=== PATIENT | male | born 1945 | race Caucasian/White ===

== ENCOUNTER 2017-12-29 14:32 | Outpatient (CLI) | payer BC ==
[~2017-12-29 14:32] MED LIST: Gadobenate Dimeglumine 529 MG/1 ML (20ML VIAL) ONE
--- NOTE | 2017-12-29 19:58 | MRI ---
MRI PELVIS WITH AND WITHOUT CONTRAST: HISTORY: Z85.820 (history of melanoma). L03.317 (cellulitis). COMPARISON: None. FINDINGS: In the posterior buttock soft tissues, there are extensive inflammatory changes with a peripherally e nhancing collection of inflammatory fluid at the level of S2-S5, with areas of susceptibility. There is also loss of normal T1 marrow signal of the posterior elements of the sacrum (S3-S5), as well as anterior elements (S3-S5), concerning for osteomyelitis. There is infectious myositis of the gluteus maximum muscles bilaterally. There is also inflammation and reactive fluid along the presacral spac e. The prostate is mildly enlarged. IMPRESSION: 1. Evidence of a peripherally enhancing collection, posterior subcutaneous fat, S3-S5, with a draini ng sinus tract, containing gas. There is associated osteomyelitis of the sacrum, S3-S5, anterior and posterior elements, as well as infectious pyomyositis of the gluteus tony muscles bilaterally. 2. Abnormal bilateral external iliac adenopathy concerning for metastasis. 3. Mildly prominent right superficial inguinal lymph nodes, also concerning for metastasis. 4. Prostatomegaly. 5. Focal area of abnormal enhancement from the L5 vertebra, may be sequela of a Schmorl's node versu s metastasis. CODE T POS: PATY
== END 2017-12-29 14:33 | disposition home or self-care (01) ==
LOC: TBSIIMAG 14:32
PROVIDERS: ATTEND Family Medicine
DX: L03.317 Cellulitis of buttock (principal); M46.28 Osteomyelitis of vertebra, sacral and sacrococcygeal region; M60.08 Infective myositis, other site; R59.0 Localized enlarged lymph nodes; R93.7 Abnormal findings on diagnostic imaging of other parts of musculoskeletal system; Z85.820 Personal history of malignant melanoma of skin
CPT/HCPCS: 72197; 82565; A9579

== ENCOUNTER 2017-12-30 19:14 | Inpatient (IN) | payer BC, MEDICARE ==
[2017-12-30] MEDS ORDERED: Ondansetron HCl/PF 4 MG/2 ML Vial IVP PRN (20:16)
[2017-12-30] MEDS ORDERED: Acetaminophen 650 MG Suppository PR PRN (20:16)
[2017-12-30] MEDS ORDERED: Ondansetron ODT 4 MG TAB PO PRN (20:16)
[2017-12-30] MEDS ORDERED: Acetaminophen 325 MG TAB PO PRN (20:16)
[2017-12-30] MEDS ORDERED: Bisacodyl 5 MG TAB PO PRN (20:16)
[2017-12-30 20:20] VITALS: BMI 29.8
[2017-12-30 20:58] LABS: Hemoglobin 13.1 g/dL (14.0-18.0); Mean Corpuscular HGB CONC 33.9 g/dL (32.0-36.0); Mean Corpuscular Hemoglobin 29.6 pg (27.0-31.0); Mean Corpuscular Volume 87.5 fl (80.0-94.0); Mean Platelet Volume 6.7 fL (7.4-10.4); Platelet Count 259 thou/uL (130-400); RBC Distribution Width 13.5 % (11.5-14.5); Red Blood Cell (RBC) Count 4.41 mill/uL (4.70-6.10); White Blood Cell (WBC) Count 16.6 thou/uL (4.8-10.8)
[2017-12-30 21:11] LABS: Band 3 % (5-11); Eosinophils 3 % (0-10); Lymphocytes 53 % (21-51); MDiff Complete? YES; Monocytes 4 % (0-10); Neutrophil 36 % (42-75)
[2017-12-30 21:19] LABS: ALT (SGPT) 33 U/L (8-55); AST (SGOT) 30 U/L (5-34); Albumin 4.2 g/dL (3.4-4.8); Alkaline Phosphatase 77 U/L (40-150); Anion Gap 9 mmol/L (10-20); BUN (Urea Nitrogen) 23 mg/dL (8.4-25.7); Bilirubin, Total 0.4 mg/dL (0.2-1.2); Calc. Creatinine Clearance 76 mL/min (70-130); Calcium 9.7 mg/dL (7.8-10.44); Carbon Dioxide 28 mmol/L (23-31); Chloride 104 mmol/L (98-107); Estimated GFR-MDRD 56; Globulin 3.4 g/dL (2.4-3.5); Glucose 109 mg/dL (80-115); Potassium 4.2 mmol/L (3.5-5.1); Protein, Total 7.6 g/dL (5.8-8.1); Sodium 137 mmol/L (136-145)
[2017-12-30] MEDS: Piperacillin/Tazobactam 4.5 GM in Sodium Chloride 0.9% 100 ML IVPB SCH (21:28)
[2017-12-30] MEDS: Famotidine 20 MG TAB PO SCH (21:28)
[2017-12-30] MEDS: Docusate 100 MG CAP PO SCH (21:28)
[2017-12-30 23:19] LABS: Bilirubin Negative (Negative); Blood, Urine Negative (Negative); Clarity CLEAR (Clear); Glucose, Urine (Dipstick) Negative (Negative); Leukocyte Negative (Negative); Nitrite Negative (Negative); Protein, Urine (Dipstick) Negative (Neg-Trace); Specific Gravity, Urine 1.019 (1.002-1.036); Urobilinogen 0.2 mg/dL (0.2-1.0); pH, Urine 5.5 (5.0-9.0)
[2017-12-30 23:22] LABS: Bacteria/HPF None Seen HPF (None Seen); Hyaline Casts/LPF 0-3 HYALINE CAST LPF (0-3 Hyaline); RBC/HPF 0-3 HPF (0-3); Squamous Epithelial None Seen HPF (0-3); WBC/HPF None Seen HPF (0-3)
[2017-12-31] MEDS ORDERED: Morphine 4 MG/ML VIAL SLOW IVP PRN (02:06)
[2017-12-31] MEDS: Piperacillin/Tazobactam 4.5 GM in Sodium Chloride 0.9% 100 ML IVPB SCH ×4 (04:10→20:48)
--- NOTE | 2017-12-31 05:36 | CON ---
DATE OF CONSULTATION: 12/30/2017 CHIEF COMPLAINT: Open wound on sacrum. HISTORY OF PRESENT ILLNESS: Patient is a 72-year-old white male. About 60 years ago, he had excisio n of some form of a malignancy on his lower back. 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 This was widely excised and closed with some form of tissue rearrangement. I do not have the operative no te at my disposal. He apparently thereafter underwent treatment with a year of interferon and high-d ose radiation therapy. He has had no subsequent problems with this area in the subsequent 16 years. About 2 months ago, he developed some pain and drainage in this area. In some fashion, an area was opened and there was purulent material and has been packed and he has been on courses of different an tibiotics. With wound getting larger, he was referred to see a plastic surgeon was seen by Dr. Arriola. Dr. Arriola saw him and performed a biopsy of some part of this wound on 12/26/2017. The pathology of this is benign, revealing a scar and reactive stroma. An MRI was obtained yesterday and this revealed several potentially concerning findings with an area that felt to potentially be infection with a draining sinus tract, abnormal external iliac adenopathy , right superficial inguinal lymph nodes, and a concern regarding osteomyelitis of the sacrum. Brianna king was admitted to the hospital by his primary care physician for further evaluation. PAST MEDICAL HISTORY: Significant for anxiety, hypertension. PAST SURGICAL HISTORY: Excision of lower back cutaneous malignancy with apparently rotation flap candy sure. He also had spine surgery in 1992. CURRENT MEDICATIONS: Zoloft, amlodipine, carvedilol. ALLERGIES: NUVIA INHIBITORS. SOCIAL HISTORY: He is with 3 children. He does not smoke. 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 His primary care physician is Dr. Chris Haley. REVIEW OF SYSTEMS: Otherwise, unremarkable. FAMILY HISTORY: Noncontributory. PHYSICAL EXAMINATION: VITAL SIGNS: Temperature is 98.0, pulse 82, blood pressure is 132/78. GENERAL: He is a well-developed, well-nourished, pleasant white male in no acute distress. He is al ert and oriented x3. HEAD, EYES, EARS, NOSE, AND THROAT: Unremarkable. NECK: Supple without mass or tenderness. LUNGS: Clear to auscultation throughout. CARDIAC: Regular rate and rhythm without murmur. ABDOMEN: Soft, nontender, nondistended. BACK: He has an area of brawny induration consistent with an area of extensive radiation in his lowe r back that probably measures about 10 x 7 cm. At the lower aspect of this, there is an opening cosme uring about 1-1.5 cm and this penetrates deeply about 1 cm. There is slight undermining to the right . The base of this wound appears to be sclerotic fibrotic tissue. : He has normal male external genitalia with testes descended bilaterally. He has easily palpable , slightly indurated lymph nodes in the right superficial groin. He has no significant lymphadenopat hy on the left. EXTREMITIES: Otherwise unremarkable. LABORATORY DATA AND X-RAY FINDINGS: CBC reveals white blood cell count is elevated at 16.6, hemoglob in is 13, platelet count 259. Chemistry panel reveals no significant abnormalities. ASSESSMENT: Patient with an area of tissue breakdown on his lower back and area of significant radia tion following an area of excision of some form of melanoma. I am not certain what is causing this, but in some fashion it seems to certainly be related to the radiation. It is possible that there was an area of radiation necrosis that became infected. I am not certain if the area of osteomyelitis s uspected on his MRIs actually infectious osteomyelitis or some change secondary to radiation. I am n ot certain whether the enlarged lymph nodes are reactive or metastatic or again related to the infect ion. Patient seems quite certain that there was an infection in this area, but there is currently no active evidence of infection. Microbiology evaluation from 11/26/2017 reveals that there was achrom obacter within the wound that was sensitive to Bactrim with which he was treated. Since the biopsy performed by Dr. Arriola was negative for malignancy, it seems less likely this is a ma lignancy. May want to consider performing a superficial groin lymph node biopsy to ensure that this is reactive rather than metastatic. I would like to review his case with Radiology to go over the fi ndings on his MRI. I would like to have the input of Dr. Matute of infectious disease. I also plan t o discuss the findings with Dr. Arriola. The initial importance is to rule out malignancy. If there is osteomyelitis and that should be ascertained and treated appropriately as well. If there is a noni rn whether this is infectious or inflammatory/radiation-induced and perhaps a bone biopsy will be nec essary. I would tentatively plan to proceed with the lymph node biopsy on 01/01/2018, pending the in put from the above-mentioned consultants and physicians.
--- NOTE | 2017-12-31 06:55 | HP ---
REASON FOR ADMISSION: Possible osteomyelitis of the sacral area. HISTORY OF PRESENT ILLNESS: The patient was sent from Dr. Chris Haley's office for nonhealing wound in the sacral area. This started out as redness and the skin broke with subsequent infection and has been draining pus. This has been there for the last 6 weeks now. He was given doxycycline twice daily along with Bactrim for nearly 3 weeks. Prior to this he was on clindamycin. He has significant history of having had melanoma removed in the same spot and had a heavy dose radiation therapy done 16 years back. The patient in fact had gone to see Dr. Arriola, plastic surgeon, on last and has had biopsy taken from the wound. The has been packing the wound and has been doing dressing changes as well. He had an MRI done yesterday which showed signs of osteomyelitis with lymph nodes seen and was referred for hospitalization by Dr. Chris Haley. PAST MEDICAL AND SURGICAL HISTORY: History of spindle cell and melanoma diagnosed in 2001, treated with radiation and Interferon and has seen Dr. Antonio for the same, hypertension, dyslipidemia, erectile dysfunction, prior colonoscopy in 2015, history of asthma, anxiety disorder, ascending aortic aneurysm per family. CURRENT MEDICATIONS: Zoloft 50 mg p.o. daily, Symbicort inhaler 160/4.5 mcg 2 puffs twice daily, Nexium 20 mg daily, Claritin 10 mg daily, doxycycline 100 mg daily, Norvasc with atorvastatin 10/10 mg p.o. daily, lorazepam 0.5 mg p.r.n., Coreg 25 mg twice daily, Viagra p.r.n. ALLERGIES: LISINOPRIL. PERSONAL HISTORY: Does not abuse alcohol or drugs. No history of smoking. FAMILY HISTORY: Father has history of bladder cancer, multiple MIs. Mother is diseased and has had history of basal cell carcinoma. She at the age of 72 years. REVIEW OF SYSTEMS: The following complete review of systems was negative, unless otherwise mentioned in the HPI or below: Constitutional: Weight loss or gain, ability to conduct usual activities. Skin: Rash, itching. Eyes: Double vision, pain. ENT/Mouth: Nose bleeding, neck stiffness, pain, tenderness. Cardiovascular: Palpitations, dyspnea on exertion, orthopnea. Respiratory: Shortness of breath, wheezing, cough, hemoptysis, fever or night sweats. Gastrointestinal: Poor appetite, abdominal pain, heartburn, nausea, vomiting, constipation, or diarrhea. Genitourinary: Urgency, frequency, dysuria, nocturia. Musculoskeletal: Pain, swelling. Neurologic/Psychiatric: Anxiety, depression. Allergy/Immunologic: Skin rash, bleeding tendency. PHYSICAL EXAMINATION: GENERAL: The patient is a 72-year-old male who is currently not in any acute distress. VITAL SIGNS: Blood pressure 132/78, pulse 80 per minute, respiratory rate 18 per minute, temperature 98 degrees Fahrenheit, saturating 98% on room air. NECK: Supple, no elevated JVD. HEENT: Eyes; extraocular muscles intact. Pupils reacting to light. Oral cavity; mucous membranes are moist. No exudates or congestion. CARDIOVASCULAR: S1, S2 heard. Regular rhythm. RESPIRATORY: Air entry 1+ bilaterally. No rales or rhonchi. ABDOMEN: Soft, bowel sounds heard. No tenderness, rigidity or guarding. The patient has stage IV sacral ulcer measuring 1 x 2 cm. EXTREMITIES: No peripheral edema or calf tenderness. VASCULAR SYSTEM: Peripheral pulses 1+ bilateral, no ischemic ulcerations or gangrene. CENTRAL NERVOUS SYSTEM: No gross focal deficits seen. Patient is alert, awake , oriented x3. PSYCHIATRIC: The patient's mood is euthymic. No hallucinations or delusions. LABORATORY AND X-RAY FINDINGS: White count 16, H&H 13 and 38, platelet count 259 with 36% neutrophils. Electrolytes stable. BUN 23, creatinine 1.28, glucose 109. Liver enzymes are within normal limits. Albumin is 4.2. CLINICAL IMPRESSION AND PLAN: The patient will be admitted to medical floor for osteomyelitis of the sacrum S3 to S5 with possible infectious pyomyositis of the gluteus tony. He has had an MRI done on the which confirms the above-mentioned findings. The skin biopsy done by Dr. Abdi Arriola is negative for malignancy. This has collagenous scar and reactive stroma seen. He will be placed on vancomycin and Zosyn for now. Dr. Saavedra is here to evaluate him. We will continue him on Norvasc, Lipitor, Coreg, Pepcid, sertraline as before. He will be on morphine p.r.n. for pain. Further workup of the wound including debridement is per Dr. Saavedra. Wound cultures have been obtained and we will follow up on the cultures for now. Please note I have seen and examined patient on 12/30/2017. CODE STATUS: Please note patient's code status is full. This was discussed with patient and at bedside. YA
[2017-12-31] MEDS: Amlodipine 10 MG TAB PO SCH (08:42)
[2017-12-31] MEDS: Famotidine 20 MG TAB PO SCH ×2 (08:43→20:46)
[2017-12-31] MEDS: Carvedilol 25 MG TAB PO SCH ×2 (08:44→16:08)
[2017-12-31] MEDS: Docusate 100 MG CAP PO SCH ×2 (08:44→20:47)
[2017-12-31 09:35] LABS: Band 1 % (5-11); Eosinophils 1 % (0-10); Hemoglobin 12.6 g/dL (14.0-18.0); Lymphocytes 61 % (21-51); MDiff Complete? YES; Mean Corpuscular HGB CONC 32.7 g/dL (32.0-36.0); Mean Corpuscular Hemoglobin 28.7 pg (27.0-31.0); Mean Corpuscular Volume 87.7 fl (80.0-94.0); Mean Platelet Volume 6.7 fL (7.4-10.4); Monocytes 3 % (0-10); Neutrophil 31 % (42-75); Platelet Count 232 thou/uL (130-400); RBC Distribution Width 13.6 % (11.5-14.5); RBC Morphology Normal; Reactive Lymphocytes 3 % (0-10); White Blood Cell (WBC) Count 13.1 thou/uL (4.8-10.8)
--- NOTE | 2017-12-31 14:09 | PDOC.PN ---
- Subjective Encounter Start Date: 12/31/17 Encounter Start Time: 14:07 Patient seen and examined, no new issues or complaints, all questions answered. - Objective Resuscitation Status: Resuscitation Status FULL:Full Resuscitation Vital Signs & Weight: Vital Signs (12 hours) Temp Pulse Resp BP BP Pulse Ox 12/31/17 11:53 98 F 52 L 16 132/76 97 12/31/17 08:42 53 L 113/70 12/31/17 08:07 98.2 F 53 L 16 113/70 97 12/31/17 08:00 98 F 52 L 16 97 12/31/17 04:00 97.7 F 56 L 16 112/66 93 L Weight Admit Weight 220 lb Weight 220 lb Result Diagrams: 12/31/17 08:56 12/30/17 20:46 Phys Exam - Physical Examination Constitutional: NAD HEENT: PERRLA, moist MMs, sclera anicteric Neck: no nodes, no JVD, supple Respiratory: no wheezing, no rales, no rhonchi Cardiovascular: RRR, no significant murmur Gastrointestinal: soft, non-tender, no distention, positive bowel sounds Musculoskeletal: no edema, pulses present sacral ulcer with a tract going down towards the sacrum Neurological: non-focal, normal sensation, moves all 4 limbs Psychiatric: normal affect, A&O x 3 Skin: no rash, normal turgor Dx/Plan (1) Osteomyelitis Code(s): M86.9 - OSTEOMYELITIS, UNSPECIFIED Status: Acute (2) HTN (hypertension) Code(s): I10 - ESSENTIAL (PRIMARY) HYPERTENSION Status: Acute (3) Anxiety Code(s): F41.9 - ANXIETY DISORDER, UNSPECIFIED Status: Acute (4) Hyperlipidemia Code(s): E78.5 - HYPERLIPIDEMIA, UNSPECIFIED Status: Acute - Plan * PICC placement * cultures pending * abx per ID * surgery and oncology also following * BP stable * DC plans in 24-48hrs once abx arrangements can be done * case and plan d/w patient at length, he understands and agrees with this plan
--- NOTE | 2017-12-31 19:24 | CON ---
DATE OF CONSULTATION: 12/31/2017 REASON FOR CONSULTATION: Decubitus ulcer of sacrum, osteomyelitis, myositis. HISTORY OF PRESENT ILLNESS: A 72-year-old patient of Dr. Chris Haley, who has a history of melanoma, who underwent resection in 2001 in this area. Subsequently, he was treated I believe at [facility] with radiation therapy and interferon. The patient for the past 6 weeks has noticed an opening in the inferior aspect of his gluteal area/intergluteal area close to the perianal region, which developed some redness with breakdown of the skin and then a persistent chronic drainage, which has failed oral antimicrobial therapy with doxycycline and Bactrim. The patient does take doxycycline for acne intermittently. He also was given clindamycin. A biopsy was done by Dr. Arriola, which showed chronic fibrotic changes, but no inflammatory changes or evidence of melanoma recurrence. The patient ended up with an MRI being performed, which demonstrated myositis in the gluteal musculature associated with it. Osteomyelitis of the tip of the sacrum, coccygeal area. Cultures have revealed achromobacter. No headaches, visual symptoms, sore throat, odynophagia, dysphagia. No cough or sputum production. No chest pain. No abdominal pain, diarrhea, genitourinary symptoms outside what we described. No joint symptoms. PAST MEDICAL HISTORY: Spindle-cell melanoma treated with radiation, interferon , and surgical resection; erectile dysfunction; colonoscopy; asthma; anxiety disorder; acne. MEDICATIONS: Zoloft, Symbicort, Nexium, Claritin, doxycycline, Norvasc, atorvastatin, lorazepam, Coreg, Viagra. ALLERGIES: LISINOPRIL. 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 FAMILY HISTORY: Bladder cancer, coronary artery disease. PHYSICAL EXAMINATION: VITAL SIGNS: T-max 98.3, blood pressure 130/76, pulse 53, respirations 16, O2 sat 97%. GENERAL: Appears in no distress. SKIN: Shows the orifice at the end of the sacral skin area close to the perianal region and a surrounding band of hyperemic hardened fibrotic skin around the lower end of the presacral skin region. No lymphadenopathy noted except for the right inguinal region, where there was a small lymph node. HEENT: Ocular movements conjugate. Nasal passages patent. Oral cavity normal. Numerous teeth in place with the expected decay. NECK: Supple. No jugular vein distention or carotid bruits. LUNGS: Symmetric clear breath sounds. HEART: S1, S2 regular rate. No S3 or S4. ABDOMEN: Soft, not distended, or tender. No ascites. No bladder distention. EXTREMITIES: He moves extremities equally. Pulses are 1+ in dorsalis pedis. NEUROLOGIC: Cognitive function appears to be intact. LABORATORY DATA: Chemistry is fairly unremarkable. Creatinine is 1.28. GFR estimated at 56. White cell count was 16.6, down to 13; hemoglobin 12.6; MCV 87 ; platelets 232 with 36% neutrophils; 1% bands; 52% lymphocytes. Sed rate is 37. Urinalysis was normal. Microbiology with Achromobacter denitrificans, which was susceptible to ceftazidime, piperacillin and tazobactam, and Bactrim. Two sets of blood cultures thus far no growth and the MRI of the pelvis demonstrated peripheral enhancing collection; posterior subcutaneous fat S3 and S4 with a draining sinus tract containing gas associated with osteomyelitis of the sacrum, S3 and S5; pyomyositis of the gluteus tony bilaterally; there is abnormal bilateral external iliac adenopathy as well. ASSESSMENT: History of melanoma about 16 years ago, now with this post- radiation changes in the skin with an ulcerated area, which represents a fistulous opening which connects to the sacral distal end associated with pyomyositis. DISCUSSION: The patient likely has osteomyelitis of the sacrum. Organisms associated with this kind of finding including the pyomyositis of the area include Staphylococcus aureus/MRSA, gram-negative rods, anaerobes, Streptococci. I would advise against surgical procedure because of the risk of poor healing due to the chronic fibrotic changes and poor vascular status of this tissue related to the prior radiation therapy. Biopsy of the bone would be also potentially associated with complications since only the very end of the sacrum or coccygeal area is involved and a procedure there would likely lead to a fracture of that and might result in chronic pain. The cultures from the exudate emanating from the drainage wound will be the only guiding piece available here in terms of antimicrobial choice. I would probably just treat him with broad-spectrum coverage including gram-positive coverage with vancomycin and either meropenem or Zosyn. The treatment duration will be around 6 weeks, monitoring the progress of the lesion. I would also advise a consultation with hyperbaric section of the hospital for treatments. I believe that this is one of the established indications for hyperbaric treatments. PICC line placement will be required. I have discussed potential adverse reactions of the treatment with the patient including possibility of colitis; skin hypersensitive reactions; kidney, liver, bone marrow toxicity; as well as line-related clots with DVT. The patient understood and agreed with management and recommendations. MTDD
[2017-12-31] MEDS: Atorvastatin Calcium 10 MG TAB PO SCH (20:46)
--- NOTE | 2017-12-31 21:11 | PRG ---
DATE OF SERVICE: 12/31/2017 Mr. Arnodl in good spirits and has no new complaints tonight. Since my consultation yesterday, I have visited with his Infectious Disease physician, Dr. Matute as well as furniture rental consultant. I dis cussed his MRI with a radiologist as well. At this time, Dr. Matute plans to treat him empirically fo r his osteomyelitis with a 6-week course of IV antibiotics for which he plans to have a PICC line chad zakiya. I plan to biopsy his enlarged right inguinal lymph node tomorrow. Depending upon findings asso ciated with this biopsy, further plans could be entertained regarding. The eventual treatment of the radiated tissue and open wound on his back. I discussed the procedure in detail regarding his lymph node, and he understands and agrees to proceed.
--- NOTE | 2018-01-01 01:25 | CON ---
DATE OF CONSULTATION: 01/01/2018 REASON FOR CONSULTATION: Melanoma. HISTORY OF PRESENT ILLNESS: Mr. Arnold is a 72-year-old gentleman who was treated by [facility]ois on for melanoma of the low back approximately 16 years ago. He underwent treatment with interferon a nd radiation. He was followed thereafter by Dr. Antonio for several years. He recently had an open wound of the area, where he was radiated and saw Dr. Arriola who was treating it, who performed a biops y of the area which was benign. He was being treated with antibiotics and wound care. Dr. Zeinab galo red an MRI of the area, which showed likely osteomyelitis. There was some abnormal bilateral externa l iliac adenopathy. There was also mildly prominent right superficial inguinal lymph node. All this was concerning for metastasis per the MRI report, so patient was admitted. Dr. Matute was consulted for the osteomyelitis. Dr. Saavedra has been consulted, we were asked to see the patient regarding po ssible melanoma. Patient states he has been in his usual state of health until this wound occurred. Denies any headaches, blurred vision, no chest pain, shortness of breath. No weakness, weight loss, or general malaise. PAST MEDICAL HISTORY: 1. Melanoma, 16 years ago. 2. Hypertension. 3. Anxiety. PAST SURGICAL HISTORY: 1. Excision of melanoma. 2. Spine surgery. ALLERGIES: LISINOPRIL. CURRENT MEDICATIONS: 1. Norvasc 10 mg daily. 2. Aspirin 81 mg daily. 3. Symbicort b.i.d. 4. Omeprazole 20 mg daily. 5. Flovent b.i.d. 6. Loratadine daily. 7. Sertraline daily. FAMILY HISTORY: Father had bladder cancer. SOCIAL HISTORY: . No alcohol, tobacco, or illicit drug use. REVIEW OF SYSTEMS: Twelve-point review of systems is negative except for noted in HPI. PHYSICAL EXAMINATION: VITAL SIGNS: Temperature is 97.6, pulse is 59, respiratory rate 16, BP is 124/76. He is 97% on room air. GENERAL: Well-developed, well-nourished male in no acute distress. HEENT: Normocephalic, atraumatic. Pupils equal and reactive to light. NECK: Supple. CARDIOVASCULAR: Regular rate and rhythm. LUNGS: Clear. ABDOMEN: Soft, nontender, bowel sounds are positive. EXTREMITIES: There is no clubbing, cyanosis, or edema. SKIN: He has a dressing to his sacral area, which is clean and dry. NEUROLOGIC: Nonfocal. PSYCHIATRIC: Patient is alert and oriented and appropriate. PERTINENT LABORATORY DATA AND X-RAYS: Current WBCs are 13.1, hemoglobin 12.6, hematocrit 38.5, plate let count is 232,000. He has got 31% neutrophils, 61% lymphocytes. Sodium is 137, potassium 4.2, ch loride 104, CO2 is 28, BUN is 23, creatinine 1.28, glucose is 109, calcium is 9.7. Total bilirubin i s 0.4, AST is 30, ALT is 33, alkaline phosphatase is 77, serum total protein is 7.6, albumin 4.2, joseline bulin 3.4. Urine is negative. ASSESSMENT: 1. Likely osteomyelitis of a sacral wound at prior radiation site. 2. History of melanoma. 3. Inguinal lymphadenopathy. DISCUSSION: Patient has agreed to an inguinal node biopsy to rule out any metastatic disease, this w ill be performed by Dr. Saavedra in the morning. Further treatment will be based on pathology results . New immunological treatments for melanoma was discussed with the patient. We will follow his path and see him in the outpatient setting if needed. Thank you for the consult.
[2018-01-01] MEDS: Piperacillin/Tazobactam 4.5 GM in Sodium Chloride 0.9% 100 ML IVPB SCH ×4 (03:24→21:00)
[2018-01-01] MEDS: Sodium Chloride 0.9% 1,000 ML IV SCH ×2 (03:24→12:28)
[2018-01-01] MEDS: Carvedilol 25 MG TAB PO SCH ×2 (06:33→17:02)
[2018-01-01] MEDS: Amlodipine 10 MG TAB PO SCH (07:32)
[2018-01-01] MEDS: Famotidine 20 MG TAB PO SCH ×2 (07:33→20:59)
[2018-01-01] MEDS: Docusate 100 MG CAP PO SCH ×2 (07:33→20:59)
[2018-01-01] MEDS ORDERED: Lidocaine 1% PF 5 ML VIAL ONE (09:47)
[2018-01-01] MEDS ORDERED: PROPOFOL 200 MG/20 ML VIAL ONE (09:47)
[2018-01-01] MEDS ORDERED: Bupivacaine/Epinephrine 0.25% 30 ML VIAL ONE (10:04)
[2018-01-01] MEDS ORDERED: Fentanyl 100 MCG/2 ML VIAL ONE (10:11)
[2018-01-01] MEDS ORDERED: Midazolam HCl 2 mg/2 ml Vial ONE (10:11)
--- NOTE | 2018-01-01 13:41 | PDOC.PN ---
- Subjective Encounter Start Date: 01/01/18 Encounter Start Time: 11:30 Patient seen and examined, no new issues or complaints, s/p lymph node biopsy. - Objective Resuscitation Status: Resuscitation Status FULL:Full Resuscitation Vital Signs & Weight: Vital Signs (12 hours) Temp Pulse Resp BP Pulse Ox 01/01/18 08:00 98.2 F 67 20 98 01/01/18 07:52 98.2 F 67 20 117/75 98 01/01/18 07:32 73 Weight Admit Weight 220 lb Weight 220 lb Result Diagrams: 12/31/17 08:56 12/30/17 20:46 Phys Exam - Physical Examination Constitutional: NAD HEENT: PERRLA, moist MMs, sclera anicteric Neck: no nodes, no JVD, supple, full ROM Respiratory: no wheezing, no rales, no rhonchi Cardiovascular: RRR, no significant murmur, no rub Gastrointestinal: soft, non-tender, no distention, positive bowel sounds Musculoskeletal: no edema, pulses present Neurological: non-focal, normal sensation Psychiatric: normal affect, A&O x 3 Skin: no rash, normal turgor Deviation from normal: sacral ulcer present Dx/Plan (1) Osteomyelitis Code(s): M86.9 - OSTEOMYELITIS, UNSPECIFIED Status: Acute (2) HTN (hypertension) Code(s): I10 - ESSENTIAL (PRIMARY) HYPERTENSION Status: Acute (3) Anxiety Code(s): F41.9 - ANXIETY DISORDER, UNSPECIFIED Status: Acute (4) Hyperlipidemia Code(s): E78.5 - HYPERLIPIDEMIA, UNSPECIFIED Status: Acute - Plan * s/p lymph node bx * PICC placement for today * continue current plan of care with no changes * DC plans in 1-2 days once ok with subspecialists * case and plan d/w patient at length, he understands and agrees with this plan
--- NOTE | 2018-01-01 14:17 | CON ---
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 The patient's medical history is significant for spindle cell melanoma d iagnosed in 2001. The patient states that he received high dose radiation therapy as well as interfe melonie for 1 year. Prior to radiation therapy and interferon treatment, the spindle cell melanoma was w idely excised. Closure of the wound apparently required flap placement. Apparently, approximately 2 months prior to admission, the patient developed pain and drainage of the sacral region. The patien t has been placed on various p.o. antibiotics and biopsy of the wound was eventually performed which returned scar and reactive stroma. 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 PAST MEDICAL HISTORY: 1. Spindle cell melanoma diagnosed in 2001, status post high dose radiation therapy and interferon t herapy for 1 year. 2. Hypertension. 3. Asthma. 4. Ascending aortic aneurysm. PAST SURGICAL HISTORY: 1. Spinal surgery in 1992. 2. Wide excision of lower back cutaneous malignancy with flap placement. MEDICATIONS ON ADMISSION: Zoloft, Nexium, Coreg, Caduet, Claritin, nasal spray for allergies. ALLERGIES: NUVIA INHIBITORS. SOCIAL HISTORY: The patient admits to the social consumption of alcohol. FAMILY HISTORY: Significant for coronary artery disease. The patient states that his father as well as multiple relatives on the paternal side of his family was diagnosed with coronary artery disease. PHYSICAL EXAMINATION: VITAL SIGNS: Temperature 97.4, pulse 73, respirations 18, blood pressure 124/82. GENERAL: A 72-year-old gentleman, lying on hospital bed, in no acute distress. HEENT: Normocephalic, atraumatic. NECK: No nuchal rigidity. CHEST: Clear to auscultation. CARDIAC: Regular rate and rhythm. ABDOMEN: Soft. EXTREMITIES: No clubbing or cyanosis. NEUROLOGIC: Grossly nonfocal. BACK: A wound of the sacral region is present. The skin surrounding the wound is indurated and fibr otic consistent with a radiated tissue. NEUROLOGIC: Grossly nonfocal. ASSESSMENT AND PLAN: A 72-year-old gentleman referred for evaluation for hyperbaric oxygen therapy t o augment the healing of a sacral wound in an area subjected to high dose radiation therapy following wide excision of spindle cell melanoma. The patient denies any history of congestive heart failure, seizures, pneumothorax, crushing chest trauma, recent retinal surgery, blood disorders including her editary spherocytosis or the administration of any chemotherapeutic agents contraindicating hyperbari c oxygen therapy. The patient is to undergo biopsy of an enlarged right inguinal lymph node and depe nding upon the results, the patient may then be a suitable candidate for treatment with hyperbaric ox ygen therapy. The patient understands the risks and benefits of hyperbaric oxygen therapy and wishes to proceed. If a trial of hyperbaric oxygen therapy is initiated, the patient will be treated at 2. 5 PROMISE with each treatment 90 minutes in duration.
--- NOTE | 2018-01-01 16:09 | SPC ---
ULTRASOUND GUIDED PARACENTESIS: 01/01/18 HISTORY: Sacral infection. IV antibiotics required. COMPARISON: None. FINDINGS: Technically successful ultrasound guided PICC. Trim length is 46 cm. A single lumen catheter flushes and aspirates. Tip is in the right atrium. TECHNIQUE: Consent obtained for ultrasound guided paracentesis via the left upper extremity. Left arm was preppe d and draped in the sterile fashion. 1% lidocaine, buffered with sodium bicarbonate used for local an esthesia. Under ultrasound guidance, a micropuncture needle was used to cannulate the basilic vein. A 1.018 guidewire was advanced through the needle to the level of the right atrium. The tract is dilat ed. Single lumen 5 Slovak catheter was advanced over the wire. Wire was removed. Catheter flushed and aspirates without difficulty. EXPOSURE: 1.2 minutes. 70873 mGy*cm2. IMPRESSION: Technically successful left upper extremity PICC line placement. POS: [facility]
[2018-01-01] MEDS: Atorvastatin Calcium 10 MG TAB PO SCH (20:59)
[2018-01-02] MEDS: Sodium Chloride 0.9% 1,000 ML IV SCH ×2 (01:30→08:41)
[2018-01-02] MEDS: Piperacillin/Tazobactam 4.5 GM in Sodium Chloride 0.9% 100 ML IVPB SCH ×2 (02:44→08:40)
[2018-01-02 04:15] LABS: Vancomycin, Trough 15.6 ug/mL
[2018-01-02 07:55] VITALS: BP 136/78; TEMP 98.3
--- NOTE | 2018-01-02 08:26 | OP ---
DATE OF OPERATION: 01/01/2018 PREOPERATIVE DIAGNOSES: Right inguinal lymphadenopathy, history of melanoma, current large sacral op en wound. POSTOPERATIVE DIAGNOSES: Right inguinal lymphadenopathy, history of melanoma, current large sacral o pen wound. OPERATION PERFORMED: Ultrasound guided right inguinal lymph node excisional biopsy. SURGEON: Andreas Saavedra M.D. ANESTHESIA: General with laryngeal mask airway. INDICATIONS: The patient is a 72-year-old white male. He presented with a large open wound on his s acrum and the area of prior radiation in treatment of melanoma. He appears to have osteomyelitis as well as significant iliac lymphadenopathy. He has 1 easily accessible right inguinal lymph node. I have recommended excisional biopsy of this. DESCRIPTION OF OPERATION: Informed consent was obtained. The patient was taken to the operating angelique m where general anesthesia obtained with the patient in supine position. Right groin was trimmed of hair, prepped with ChloraPrep, draped in sterile fashion. Ultrasound was utilized to evaluate the ly mphadenopathy. There was one single dominant lymph node that measures at least 2 cm in maximum dimen dolly. This was marked cutaneously. Local anesthetic was infiltrated and transverse incision was cre ated over the lymph node. Dissection was carried through skin, subcutaneous tissue down onto the lym ph node. This was dissected circumferentially. All investing lymphatics were divided between clamps and 2-0 silk ties. The specimen was passed off the field for lymphoma protocol and submitted to pat marizol as a fresh specimen. The wound was then closed in layers with 3-0 Vicryl to obliterate the de ad space. Skin edges approximated with 4-0 Monocryl subcuticular suture. Dermabond was placed exter [place]. There were no complications. Blood loss was essentially none. The patient tolerated the pro cedure well and was taken to recovery room in stable condition.
[2018-01-02] MEDS: Amlodipine 10 MG TAB PO SCH (08:39)
[2018-01-02] MEDS: Docusate 100 MG CAP PO SCH (08:39)
[2018-01-02] MEDS: Carvedilol 25 MG TAB PO SCH (08:39)
[2018-01-02] MEDS: Famotidine 20 MG TAB PO SCH (08:39)
--- NOTE | 2018-01-02 09:07 | PDOC.EVN ---
Event Note - Event Note Event Note: DC SUMMARY #[id number]
--- NOTE | 2018-01-02 16:50 | DIS ---
DATE OF ADMISSION: 12/30/2017 DATE OF DISCHARGE: 01/02/2018 ADMITTING DIAGNOSES: Suspected osteomyelitis of the sacral bone as well as ulcer, unstageable; essen tial hypertension; anxiety disorder; hyperlipidemia. DISCHARGE DIAGNOSES: Osteomyelitis, stable; reactive lymphadenopathy status post biopsy; essential h ypertension, stable; anxiety, stable; hyperlipidemia, stable. HOSPITAL COURSE: This is a 72-year-old male who presented from [place] with a sacral ulcer, unsta geable. The patient was evaluated by Internal Medicine, Infectious Disease as well as Surgical Subsp ecialty. Clinical diagnosis of osteomyelitis was made. Biopsy was not possible given the location o f the area. The patient also had lymph node biopsy done, results were pending upon time of discharge . The patient was to follow up with the surgeon for further results of the biopsy and any management that may be needed depending on the result. At the point in time of discharge, the patient was stab le, denied any nausea, vomiting, diarrhea, constipation, chest pain, fevers or shortness of breath. I had an appointment with Infectious Disease set up for long-term IV antibiotics. PICC line was plac ed prior to discharge and was confirmed to be in place and stable and working. DISPOSITION: Home. Follow up with Infectious Disease, Dr. Matute and PCP in 2-3 days. ACTIVITY: As tolerated with assistance as appropriate. The patient counseled on proper care of PICC line prior to discharge by Internal Medicine physician. DIET: Low fat, low calorie, high fiber diet. CONDITION: Stable. PROGNOSIS: Good. MEDICATIONS: Resume home medications. Antibiotics to be arranged by Infectious Disease. Case and plan discussed with the patient at length. He understands and agrees with this plan.
== END 2018-01-02 10:08 | disposition home or self-care (01) | DRG 517 ==
LOC: T4-B 19:14
PROVIDERS: ADMIT Family Medicine; ATTEND Family Medicine
PROC: 07BH3ZX Excision of Right Inguinal Lymphatic, Percutaneous Approach, Diagnostic (ICD-10-PCS; principal; 2018-01-01)
PROC: 02H633Z Insertion of Infusion Device into Right Atrium, Percutaneous Approach (ICD-10-PCS; 2018-01-01)
PROC: B244ZZZ Ultrasonography of Right Heart (ICD-10-PCS; 2018-01-01)
DX: M86.9 Osteomyelitis, unspecified (principal); L89.150 Pressure ulcer of sacral region, unstageable; I10 Essential (primary) hypertension; F41.9 Anxiety disorder, unspecified; E78.5 Hyperlipidemia, unspecified; R59.1 Generalized enlarged lymph nodes; Z85.820 Personal history of malignant melanoma of skin; J45.909 Unspecified asthma, uncomplicated; I71.2 Thoracic aortic aneurysm, without rupture
CPT/HCPCS: 36415; 36569; 80053; 80202; 81001; 85025; 85652; 87040; 87070; 87205; 88184; C1751; J2001; J2250; J2543; J2704; J3010; J3370; J7050

== ENCOUNTER 2018-01-08 13:22 | Outpatient (CLI) | payer BC ==
--- NOTE | 2018-01-08 15:10 | PRG ---
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 MRI of [facility] pelvis obtained on 12/29/2017 revealed sacral osteomyelitis and the patient is receiving IV antibio tics for approximately 6 weeks as per Infectious Diseases. Today, the patient states he would like t o defer treatment with hyperbaric oxygen. At the present time, the patient has been receiving dressi ng changes for the sacral wound with the assistance of his . The patient has no other complaints today. He denies any fever or chills. PHYSICAL EXAMINATION: VITAL SIGNS: Temperature 98.0, pulse 72, respirations 18, blood pressure 152/93. BACK: A sacral wound is present which measures approximately 1.3 x 0.6 cm. Granulation tissue is pr esent within the wound margins. No purulent drainage is associated with the wound. No cellulitis of the sacral region is present. No maceration of the skin of the periwound is noted. A tunnel at the 12 o'clock position is present and is approximately 1.6 cm in length. ASSESSMENT AND PLAN: 1. Sacral wound as described above. Dressing changes of Medihoney and gauze will be initiated today . These dressing changes are to be performed on a daily basis after cleansing and irrigation with [facility] assistance of the patient's . I will see the patient again in 2 weeks. As stated above, the p atient would like to defer treatment with hyperbaric oxygen at the present time. The patient continu es to receive IV antibiotics as per Dr. Jean Marie Matute of Infectious Diseases for sacral osteomyelitis . The patient and his understand and are in agreement with the preceding treatment plan. The p atient is to return to the Wound Center in 2 weeks and measurements of the sacral wound will be obtai bonilla again. The patient has been reassured that treatment with the wound VAC does not appear to be wa rranted at the present time. 2. Spindle cell melanoma diagnosed in 2001, status post high dose radiation therapy and interferon t herapy for 1 year. 3. Hypertension. 4. Asthma. 5. Ascending aortic aneurysm.
[2018-01-08] MEDS ORDERED: Lidocaine 2% Jelly 5 ML TUBE ONE (21:24)
[2018-01-08] MEDS ORDERED: Sodium Chloride 0.9% 15 ML NEB ONE (21:24)
== END 2018-01-08 13:23 | disposition home or self-care (01) ==
LOC: WCC 13:22
PROVIDERS: ATTEND Family Medicine
DX: S31.000D Unspecified open wound of lower back and pelvis without penetration into retroperitoneum, subsequent encounter (principal); J45.909 Unspecified asthma, uncomplicated; I71.2 Thoracic aortic aneurysm, without rupture; Z85.820 Personal history of malignant melanoma of skin
CPT/HCPCS: 97602; A4218

== ENCOUNTER 2018-01-22 13:28 | Outpatient (CLI) | payer BC ==
[~2018-01-22 13:28] MED LIST changes: -Gadobenate Dimeglumine 529 MG/1 ML (20ML VIAL) ONE; +Sodium Chloride 0.9% 15 ML NEB ONE
--- NOTE | 2018-01-22 14:41 | PRG ---
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 MRI of the pelvis obtained on 12/29/2017 revealed sacral osteomyelitis and the patient has received IV antib iotics as per Infectious Diseases. Currently, the patient is receiving dressing changes of Medihoney for his sacral wound with the assistance of his . These dressing changes are being performed on a daily basis after cleansing and irrigation. The patient has no other complaints today. He denies any fever or chills. PHYSICAL EXAMINATION: VITAL SIGNS: Temperature 98.2, pulse 69, respirations 18, blood pressure 144/78. BACK: A sacral wound is present, which measures approximately 1.3 x 0.5 cm. The dimensions of the w ound at the time of the patient's visit on 01/08/2018 were approximately 1.3 x 0.6 cm. A tunnel at t 12 o'clock position is present and is approximately 1.5 cm in length. The length of the tunnel at the time of the patient's visit on 01/08/2018 was approximately 1.6 cm in length. Granulation tissu e is present within the wound margins. No purulent drainage is associated with the wound. No cellul itis of the sacral region is present. No maceration of the skin of the periwound is noted. ASSESSMENT AND PLAN: 1. Sacral wound as described above. Dressing changes of Medihoney and gauze will be continued on a daily basis after cleansing and irrigation with the assistance of the patient's . I will see the patient again in 2 weeks. As stated above, the patient has received IV antibiotics as per Dr. Tonya Huang of Infectious Diseases for sacral osteomyelitis. 2. Spindle cell melanoma diagnosed in 2001, status post high-dose radiation therapy and interferon t herapy for 1 year. 3. Hypertension. 4. Asthma. 5. Ascending aortic aneurysm.
== END 2018-01-22 13:29 | disposition home or self-care (01) ==
LOC: WCC 13:28
PROVIDERS: ATTEND Family Medicine
DX: S31.000D Unspecified open wound of lower back and pelvis without penetration into retroperitoneum, subsequent encounter (principal); M86.9 Osteomyelitis, unspecified; C43.9 Malignant melanoma of skin, unspecified; I10 Essential (primary) hypertension; J45.909 Unspecified asthma, uncomplicated; I71.4 Abdominal aortic aneurysm, without rupture; Z92.3 Personal history of irradiation
CPT/HCPCS: 97602; A4218

== ENCOUNTER 2018-02-05 13:52 | Outpatient (CLI) | payer BC ==
--- NOTE | 2018-02-05 16:35 | PRG ---
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 MRI of th e pelvis obtained on 12/29/2017 revealed sacral osteomyelitis and the patient has received IV antibio tics as per Infectious Diseases. The patient is now taking p.o. antibiotics as per Infectious Diseas es. Presently, the patient is receiving dressing changes of Medihoney for his sacral wound with the assistance of his . These dressing changes are being performed on a daily basis after cleansing and irrigation. The patient has no other complaints today. He denies any fever or chills. PHYSICAL EXAMINATION: VITAL SIGNS: Temperature 97.8, pulse 70, respirations 18, blood pressure 149/87. BACK: A sacral wound is present which measures approximately 1.4 x 0.5 cm. The dimensions of the wo und at the time of the patient's visit on 01/22/2018 were approximately 1.3 x 0.5 cm. A tunnel at th e 1 o'clock position is present and is approximately 2 cm in length. The length of a tunnel associat ed with the wound at the time of the patient's visit on 01/22/2018 was approximately 1.5 cm in length . Granulation tissue is present within the wound margins. No purulent drainage is associated with [facility] wound. No maceration of the skin of the periwound is noted. ASSESSMENT AND PLAN: 1. Sacral wound as described above. Dressing changes of Medihoney and gauze will be continued on a daily basis after cleansing and irrigation with the assistance of the patient's . I will see the patient again in 2 weeks. As stated above, the patient has received IV antibiotics as per Dr. Tonya Huang of Infectious Diseases for sacral osteomyelitis. The patient is now receiving p.o. antibiot ics as per Infectious Diseases. Because the length of the tunnel associated with the wound has incre ased since the patient's last visit, I have explained to the patient and his , consideration will need to be given to treatment with the wound VAC in conjunction with hyperbaric oxygen therapy. The patient will be in the [facility] area for work and arrangements will be made for the patient to receive wound care while the patient is in [facility]. The patient agrees to a trial of hyperbari c oxygen therapy once he returns to the [facility]. 2. Spindle cell melanoma diagnosed in 2001, status post high dose radiation therapy and interferon t herapy for 1 year. 3. Hypertension. 4. Asthma. 5. Ascending aortic aneurysm.
[2018-02-05] MEDS ORDERED: Sodium Chloride 0.9% 15 ML NEB ONE (19:04)
== END 2018-02-05 13:53 | disposition home or self-care (01) ==
LOC: WCC 13:52
PROVIDERS: ATTEND Family Medicine
DX: S31.000D Unspecified open wound of lower back and pelvis without penetration into retroperitoneum, subsequent encounter (principal); C43.9 Malignant melanoma of skin, unspecified; I10 Essential (primary) hypertension; I71.4 Abdominal aortic aneurysm, without rupture; J45.909 Unspecified asthma, uncomplicated
CPT/HCPCS: A4218

== ENCOUNTER 2018-04-17 08:02 | Outpatient (CLI) | payer BC ==
--- NOTE | 2018-04-17 11:11 | MRI ---
MRI PELVIS WITHOUT CONTRAST: HISTORY: Osteomyelitis. COMPARISON: MRI pelvis with and without contrast 12/29/17. FINDINGS: BONES: There is improved marrow signal of the sacrum S3-S5 from the comparison examination with better marro w fat relative to the prior exam. Very mild posterior element erosions are similar to slightly impro ving as the cortices of the erosions are thicker. Evaluation of the soft tissues is limited without the intravenous administration of contrast as was administered on the prior examination, although the T2 hyperintense collection of fluid appears to be improved. There are areas of susceptibility along the soft tissue in the sinus tract. Edema of the gluteus musculature is improving. The prostate is markedly enlarged. The left external iliac lymph node is unchanged in size. Right e xternal iliac lymph nodes are unchanged in size. IMPRESSION: 1. Interval improvement of healing osteomyelitis. 2. Slight interval decrease in size of the fluid collection and sinus tract of the sacrum with impro ving pyomyositis. 3. Similar appearance of the metastatic adenopathy. POS: [facility]
== END 2018-04-17 08:03 | disposition home or self-care (01) ==
LOC: SCSMRI 08:02
PROVIDERS: ATTEND Internal Medicine Infectious Disease
DX: M46.28 Osteomyelitis of vertebra, sacral and sacrococcygeal region (principal); M60.08 Infective myositis, other site; R59.0 Localized enlarged lymph nodes
CPT/HCPCS: 72195

== ENCOUNTER 2018-04-27 14:56 | Outpatient (CLI) | payer BC | END 2018-04-27 14:57 | disposition home or self-care (01) | LOC: WCC 14:56 | PROVIDERS: ATTEND Family Medicine | DX: L59.8 Other specified disorders of the skin and subcutaneous tissue related to radiation (principal) | CPT/HCPCS: 99183 ==

== ENCOUNTER 2018-04-28 10:37 | Outpatient (CLI) | payer BC | END 2018-04-28 10:38 | disposition home or self-care (01) | LOC: WCC 10:37 | PROVIDERS: ATTEND Family Medicine | DX: L59.8 Other specified disorders of the skin and subcutaneous tissue related to radiation (principal) | CPT/HCPCS: 99183 ==

== ENCOUNTER 2018-04-29 14:34 | Outpatient (CLI) | payer BC ==
[2018-04-29] MEDS ORDERED: Sodium Chloride 0.9% 15 ML NEB ONE (20:57)
== END 2018-04-29 14:35 | disposition home or self-care (01) ==
LOC: WCC 14:34
PROVIDERS: ATTEND Family Medicine
DX: L59.8 Other specified disorders of the skin and subcutaneous tissue related to radiation (principal)
CPT/HCPCS: 87070; 87076; 87077; 87186; 87205; 99183; A4218

== ENCOUNTER 2018-05-04 14:34 | Outpatient (CLI) | payer BC | END 2018-05-04 14:35 | disposition home or self-care (01) | LOC: HBO 14:34 | PROVIDERS: ATTEND Family Medicine | DX: L59.8 Other specified disorders of the skin and subcutaneous tissue related to radiation (principal) | CPT/HCPCS: 99183 ==

== ENCOUNTER 2018-05-05 14:28 | Outpatient (CLI) | payer BC | END 2018-05-05 14:29 | disposition home or self-care (01) | LOC: WCC 14:28 | PROVIDERS: ATTEND Family Medicine | DX: L59.8 Other specified disorders of the skin and subcutaneous tissue related to radiation (principal) | CPT/HCPCS: G0277 ==

== ENCOUNTER 2018-05-07 11:20 | Outpatient (CLI) | payer BC | END 2018-05-07 11:21 | disposition home or self-care (01) | LOC: HBO 11:20 | PROVIDERS: ATTEND Family Medicine | DX: L59.8 Other specified disorders of the skin and subcutaneous tissue related to radiation (principal) | CPT/HCPCS: 99183 ==

== ENCOUNTER 2018-05-11 14:19 | Outpatient (CLI) | payer BC | END 2018-05-11 14:20 | disposition home or self-care (01) | LOC: HBO 14:19 | PROVIDERS: ATTEND Family Medicine | DX: L59.8 Other specified disorders of the skin and subcutaneous tissue related to radiation (principal) | CPT/HCPCS: 99183 ==

== ENCOUNTER 2018-05-13 14:04 | Outpatient (CLI) | payer BC ==
[2018-05-13] MEDS ORDERED: Sodium Chloride 0.9% 15 ML NEB ONE ×2 (14:30)
--- NOTE | 2018-05-13 16:34 | PRG ---
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 MRI of the pelvis obtained on 12/29/2017 revealed sacral osteomyelitis and the patient has received IV and p.o. antibiotics as per Infectious Diseases. Presently, the patient is receiving dressing changes of wash for his sacral wound with the assistance of his . The patient is now receiving hyperbaric oxygen therapy for his sacral wound. PHYSICAL EXAMINATION: VITAL SIGNS: Temperature 97.9, pulse 62, respirations 18, blood pressure 139/77. BACK: A sacral wound is present which measures approximately 1.3 x 0.6 cm. The depth of the wound i s approximately 1.6 cm. Granulation tissue is present within the wound margins. No purulent drainag e is associated with the wound. No cellulitis of the sacral region is appreciated. No maceration of the skin of the periwound is noted. ASSESSMENT AND PLAN: 1. Sacral wound as described above. Dressing changes of wash will be continued with the assistance of the patient's . As stated above, the patient has received IV and p.o. antibiotics as per Dr. Jean Marie Matute of Infectious Diseases. MRI of the pelvis obtained on 04/17/2018 revealed interval imp rovement of osteomyelitis. Hyperbaric oxygen therapy will be continued. Tissue cultures obtained on 04/29/2018 revealed the growth of Proteus mirabilis, Enterococcus species and Peptostreptococcus Mag nus. The patient has completed a course of Augmentin as previously prescribed. Enterococcus was fou nd to be sensitive to Augmentin based upon the sensitivity results. The patient will be given a cour se of Levaquin 500 mg #10, 1 p.o. daily x10 days for treatment of Proteus mirabilis and Peptostreptoc occus Luis A. Proteus mirabilis was found to be sensitive to levofloxacin based upon the sensitivity results from the cultures sent on 04/29/2018. 2. Spindle cell melanoma diagnosed in 2001, status post high dose radiation therapy and interferon t herapy for 1 year. 3. Hypertension. 4. Asthma. 5. Ascending aortic aneurysm.
== END 2018-05-13 14:05 | disposition home or self-care (01) ==
LOC: HBO 14:04
PROVIDERS: ATTEND Family Medicine
DX: S31.000D Unspecified open wound of lower back and pelvis without penetration into retroperitoneum, subsequent encounter (principal)
CPT/HCPCS: 99183; A4218

== ENCOUNTER 2018-05-18 14:52 | Outpatient (CLI) | payer BC | END 2018-05-18 14:53 | disposition home or self-care (01) | LOC: HBO 14:52 | PROVIDERS: ATTEND Family Medicine | DX: L59.8 Other specified disorders of the skin and subcutaneous tissue related to radiation (principal) | CPT/HCPCS: 99183 ==

== ENCOUNTER 2018-05-20 13:25 | Outpatient (CLI) | payer BC | END 2018-05-20 13:26 | disposition home or self-care (01) | LOC: HBO 13:25 | PROVIDERS: ATTEND Family Medicine | DX: L59.8 Other specified disorders of the skin and subcutaneous tissue related to radiation (principal) | CPT/HCPCS: 99183 ==

== ENCOUNTER → 2018-05-25 | Outpatient (CLI) | payer BC | LOC: HBO 14:15 | PROVIDERS: ATTEND Family Medicine | DX: L59.8 Other specified disorders of the skin and subcutaneous tissue related to radiation (principal) | CPT/HCPCS: 99183 ==

== ENCOUNTER 2018-05-26 14:23 | Outpatient (CLI) | payer BC | END 2018-05-26 14:24 | disposition home or self-care (01) | LOC: HBO 14:23 | PROVIDERS: ATTEND Family Medicine | DX: L59.8 Other specified disorders of the skin and subcutaneous tissue related to radiation (principal) | CPT/HCPCS: 99183 ==

== ENCOUNTER 2018-05-27 14:33 | Outpatient (CLI) | payer BC | END 2018-05-27 14:34 | disposition home or self-care (01) | LOC: HBO 14:33 | PROVIDERS: ATTEND Family Medicine | DX: L59.8 Other specified disorders of the skin and subcutaneous tissue related to radiation (principal) | CPT/HCPCS: 99183 ==

== ENCOUNTER → 2018-05-28 | Outpatient (CLI) | payer BC | LOC: WCC 12:33 | PROVIDERS: ATTEND Family Medicine | DX: L59.8 Other specified disorders of the skin and subcutaneous tissue related to radiation (principal) | CPT/HCPCS: 99183 ==

== ENCOUNTER 2018-06-01 14:36 | Outpatient (CLI) | payer BC | END 2018-06-01 14:37 | disposition home or self-care (01) | LOC: HBO 14:36 | PROVIDERS: ATTEND Family Medicine | DX: L59.8 Other specified disorders of the skin and subcutaneous tissue related to radiation (principal) | CPT/HCPCS: 99183 ==

== ENCOUNTER 2018-06-02 08:33 | Outpatient (CLI) | payer BC | END 2018-06-02 08:34 | disposition home or self-care (01) | LOC: HBO 08:33 | PROVIDERS: ATTEND Family Medicine | DX: L59.8 Other specified disorders of the skin and subcutaneous tissue related to radiation (principal) | CPT/HCPCS: 99183 ==

== ENCOUNTER 2018-06-03 14:17 | Outpatient (CLI) | payer BC | END 2018-06-03 14:18 | disposition home or self-care (01) | LOC: HBO 14:17 | PROVIDERS: ATTEND Family Medicine | DX: L59.8 Other specified disorders of the skin and subcutaneous tissue related to radiation (principal) | CPT/HCPCS: 99183 ==

== ENCOUNTER 2018-08-03 14:31 | Outpatient (CLI) | payer BC ==
--- NOTE | 2018-08-03 17:59 | CT ---
CT ANGIOGRAM PELVIS WITH AND WITHOUT CONTRAST: HISTORY: Chronic wound. COMPARISON: Pelvic MRI from 04/17/2018. FINDINGS: A CT of the abdomen was performed prior to and after the intravenous administration of contrast, and 3D rendering was provided. On the precontrast imaging sequence, there is mild atherosclerotic plaque of the aortoiliac system. Post contrast demonstrates no dilated loops of bowel in the pelvis. There is extensive external hue c and common iliac adenopathy. These lymph nodes appear similar in size to the comparison examinatio n of 04/17/2018. IMPRESSION: 1. The aortic is nonaneurysmal. The inferior mesenteric artery is patent. The internal iliac arter ies and the external iliac arteries are patent. 2. The inferior epigastric arteries are patent. The common femoral and femoral arteries, as well as the deep femoral arteries, are patent. Patent vasculature. 3. Unchanged metastatic adenopathy. 4. The soft tissue ulcer over the sacrum has not progressed, with small foci of subcutaneous gas, as well as dystrophic calcifications within the wound. POS: [facility]
== END 2018-08-03 14:32 | disposition home or self-care (01) ==
LOC: BICCT 14:31
PROVIDERS: ATTEND Family Medicine
DX: L98.492 Non-pressure chronic ulcer of skin of other sites with fat layer exposed (principal); L59.8 Other specified disorders of the skin and subcutaneous tissue related to radiation; R59.9 Enlarged lymph nodes, unspecified
CPT/HCPCS: 72191; 82565

== ENCOUNTER 2018-11-30 14:31 | Outpatient (CLI) | payer BC ==
--- NOTE | 2018-11-30 15:24 | ULT ---
Venous duplex sonogram right upper extremity HISTORY: Right arm pain and edema. PICC in place. FINDINGS: The right internal jugular and subclavian veins were evaluated along with the axillary, bra chial, cephalic, and basilic. Good color and spectral Doppler flow. No internal thrombus. IMPRESSION: No sonographic evidence of DVT within the right upper extremity.
== END 2018-11-30 14:32 | disposition home or self-care (01) ==
LOC: ULT 14:31
PROVIDERS: ATTEND Internal Medicine Infectious Disease
DX: R60.0 Localized edema (principal); M86.10 Other acute osteomyelitis, unspecified site; L59.8 Other specified disorders of the skin and subcutaneous tissue related to radiation

== ENCOUNTER 2019-12-30 11:59 | Emergency (ER) | payer BC ==
[~2019-12-30 11:59] MED LIST changes: +Calcium Chloride 1 GM/10 ML Abboject SYRINGE ONE; +EPINEPHrine 1 MG/10 ML Abboject SYRINGE ONE; +Sodium Bicarb 50 MEQ/50 ML Abboject 8.4% SYRINGE ONE; -Sodium Chloride 0.9% 15 ML NEB ONE
[2019-12-31 10:42] LABS: SARS-CoV-2 MS2 Positive; SARS-CoV-2 N Gene Negative; SARS-CoV-2 S Gene Negative; SARS-CoV-2 orf1ab Negative
== END 2019-12-30 12:07 | disposition expired ==
LOC: ERS 11:59 → EDBD 11:59 → MERGE 11:59 → ERS 12:07
DX: I46.9 Cardiac arrest, cause unspecified (principal)
CPT/HCPCS: 87635; 92950; J0171; U0003